=== PATIENT | female | born 1970 | race African-American/Black ===

== ENCOUNTER 2017-07-18 21:22 | Emergency (ER) | payer MEDICAID ==
[~2017-07-18] VITALS: Ht 160 cm; Wt 95.3 kg
[2017-07-18 21:42] VITALS: BP 173/73
== END 2017-07-19 00:36 | disposition left against medical advice (07) ==
LOC: ER 21:31
DX: R10.9 Unspecified abdominal pain (principal); Z53.21 Procedure and treatment not carried out due to patient leaving prior to being seen by health care provider